=== PATIENT | male | born 1990 | race Caucasian/White ===

== ENCOUNTER 2019-10-09 15:33 | Emergency (ER) | payer SELFPAY ==
[2019-10-09 16:33] VITALS: BP 108/65
[2019-10-09] MEDS ORDERED: CEPHALEXIN 500 MG CAPSULE PO ONE (16:39)
[2019-10-09] MEDS ORDERED: DIPH/PERTUSS(ACELL)/TETANUS VAC/PF 0.5 ML SYR (>=10YO) IM ONE (16:39)
--- NOTE | 2019-10-09 16:43 | ER Document Report ---
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 Patient with puncture wound to left forearm. Patient is concerned that wound will become infected because of the knife he was using was used to cut chickens. Patient denies any fever. Patient denies any history of diabetes. Associated Symptoms: denies: Fever Exacerbated by: Denies Relieved by: Denies Similar symptoms previously: No Recently seen / treated by doctor: No - ROS ROS below otherwise negative: Yes Systems Reviewed and Negative: Yes All other systems reviewed and negative - CONSTITUTIONAL Constitutional: DENIES: Fever, Chills - NEURO Neurology: DENIES: Weakness - MUSCULOSKELETAL Musculoskeletal: REPORTS: Extremity pain - DERM Skin Problems: Laceration, Puncture Wound Past Medical History - General Information source: Patient - Social History Smoking Status: Current Every Day Smoker Frequency of alcohol use: None Drug Abuse: None 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 Family History: Reviewed & Not Pertinent Patient has suicidal ideation: No Patient has homicidal ideation: No - Medical History Medical History: Negative Surgical Hx: Negative - Immunizations Hx Diphtheria, Pertussis, Tetanus Vaccination: No Vertical Provider Document - CONSTITUTIONAL Agree With Documented VS: Yes Exam Limitations: No Limitations General Appearance: WD/WN, No Apparent Distress - HEENT HEENT: Atraumatic, Normocephalic - NECK Neck: Normal Inspection, Supple - RESPIRATORY Respiratory: Breath Sounds Normal, No Respiratory Distress - CARDIOVASCULAR Cardiovascular: Regular Rate, Regular Rhythm Pulses: Normal: Radial - MUSCULOSKELETAL/EXTREMETIES Musculoskeletal/Extremeties: MAEW, FROM, Tender - Tenderness to puncture wound to left forearm - NEURO Level of Consciousness: Awake, Alert, Appropriate Motor/Sensory: No Motor Deficit Notes: No radial, median or ulnar nerve deficits to left arm - DERM Integumentary: Warm, Dry, Laceration - 1 cm puncture wound laceration to left forearm, no surrounding erythema, wound edges approximated Course - Re-evaluation Re-evalutation: 10/09/19 16:40 Presents with concerns about possible infection due to puncture wound to left forearm. Patient without any overt signs of infection at this time. Will start patient on short course of antibiotics as well as updating his tetanus immunization. Signs or symptoms to return immediately were discussed. Wound c are discussed with patient. - Vital Signs Vital signs: Temp Pulse Resp BP Pulse Ox 97.6 F 80 16 108/65 100 10/09/19 16:06 10/09/19 16:06 10/09/19 16:06 10/09/19 16:06 10/09/19 16:06 Discharge - Discharge Clinical Impression: Puncture wound Arm laceration Qualifiers: Encounter type: initial encounter Laterality: left Qualified Code(s): S41.112A - Laceration without foreign body of left upper arm, initial encounter Condition: Stable Disposition: HOME, SELF-CARE Instructions: Antibiotic Ointment Protection ([facility]), Cephalexin ([facility]), Puncture Wound ([facility]), Tetanus Immunization Given ([facility]) Additional Instructions: Return immediately for any new or worsening symptoms: Redness streaks, fever, purulent drainage or any concerning symptoms Followup with your primary care provider, call tomorrow to make a followup appointment Keep wound covered as it continues to heal Prescriptions: Cephalexin Monohydrate [Keflex 500 mg Capsule] 500 mg PO Q6H 5 Days capsule Naproxen [Naprosyn 250 Nmg Tablet] 1 tab PO BID #14 tablet Forms: Return to Work Referrals: [facility] [Provider Group] - Follow up as needed
== END 2019-10-09 17:00 | disposition home or self-care (01) ==
LOC: ER 15:33
DX: S51.832A Puncture wound without foreign body of left forearm, initial encounter (principal); W26.0XXA Contact with knife, initial encounter; Y99.0 Civilian activity done for income or pay; F17.200 Nicotine dependence, unspecified, uncomplicated; Z23 Encounter for immunization
CPT/HCPCS: 90471; 90715; 99283

== ENCOUNTER 2020-03-15 11:24 | Emergency (ER) | payer SELFPAY ==
--- NOTE | 2020-03-15 13:04 | ER Document Report ---
ED Headache - General Chief Complaint: Other Stated Complaint: HEADACHE Time Seen by Provider: 03/15/20 12:57 Mode of Arrival: Ambulatory Information source: Patient Notes: 29-year-old male presented to ED for complaint of a severe headache last night. He states he did get some medicines last night and it is much better today. He states he mainly just needs something to contain his headache still he can get followed up by a primary care doctor and a work note so he can go back to work tomorrow. He is alert oriented respirations regular and unlabored speaking in full sentences. He states when he could afford it he took Maxalt and it worked well. Patient is alert oriented respirations regular nonlabored speaking in full sentences. - HPI Patient complains to provider of: "Migraine" Patient reports: Frequent migraines Onset: Just prior to arrival Onset was: Gradual Timing: Better Quality of pain: Achy Severity: Moderate Pain Level: 3 Exacerbated by: Other Similar symptoms previously: Yes Recently seen / treated by doctor: No - Related Data Allergies/Adverse Reactions: No Known Allergies Allergy (Verified 10/09/19 16:44) Home Medications: Suboxone Past Medical History - General Information source: Patient - Social History Smoking Status: Current Every Day Smoker Chew tobacco use (# tins/day): No Frequency of alcohol use: None Drug Abuse: None Lives with: Family Family History: Reviewed & Not Pertinent Patient has homicidal ideation: No - Past Medical History Cardiac Medical History: Reports: None Pulmonary Medical History: Reports: None EENT Medical History: Reports: None Neurological Medical History: Reports: Hx Migraine Endocrine Medical History: Reports: None Renal/ Medical History: Reports: None Malignancy Medical History: Reports None GI Medical History: Reports: None Musculoskeletal Medical History: Reports None Skin Medical History: Reports None Psychiatric Medical History: Reports: None Traumatic Medical History: Reports: None Infectious Medical History: Reports: None Surgical Hx: Negative Past Surgical History: Reports: None - Immunizations Hx Diphtheria, Pertussis, Tetanus Vaccination: No Review of Systems - Review of Systems Constitutional: No symptoms reported EENT: No symptoms reported Cardiovascular: No symptoms reported Respiratory: No symptoms reported Gastrointestinal: No symptoms reported Genitourinary: No symptoms reported Male Genitourinary: No symptoms reported Musculoskeletal: No symptoms reported Skin: No symptoms reported Hematologic/Lymphatic: No symptoms reported Neurological/Psychological: No symptoms reported, Headaches - Patient had a headache earlier but not now -: Yes All other systems reviewed and negative Physical Exam - Vital signs Vitals: Temp Pulse Resp BP Pulse Ox 98.6 F 87 16 137/76 H 97 03/15/20 11:27 03/15/20 11:27 03/15/20 11:27 03/15/20 11:27 03/15/20 11:27 Interpretation: Normal - General General appearance: Appears well, Alert - HEENT Head: Normocephalic, Atraumatic Eyes: Normal Pupils: PERRL - Respiratory Respiratory status: No respiratory distress Chest status: Nontender Breath sounds: Normal Chest palpation: Normal - Cardiovascular Rhythm: Regular Heart sounds: Normal auscultation Murmur: No - Abdominal Inspection: Normal Distension: No distension Bowel sounds: Normal Tenderness: Nontender Organomegaly: No organomegaly - Back Back: Normal, Nontender - Extremities General upper extremity: Normal inspection, Nontender, Normal color, Normal ROM, Normal temperature General lower extremity: Normal inspection, Nontender, Normal color, Normal ROM, Normal temperature, Normal weight bearing. No: Concepcion's sign - Neurological Neuro grossly intact: Yes Cognition: Normal Orientation: AAOx4 [place] Coma Scale Eye Opening: Spontaneous [place] Coma Scale Verbal: Oriented Susan Coma Scale Motor: Obeys Commands Susan Coma Scale Total: 15 Speech: Normal Motor strength normal: LUE, RUE, LLE, RLE Sensory: Normal - Psychological Associated symptoms: Normal affect, Normal mood - Skin Skin Temperature: Warm Skin Moisture: Dry Skin Color: Normal Course - Re-evaluation Re-evalutation: 03/15/20 23:46 Patient stated he had a headache yesterday and was much better today but he needed a work note to go back to work tomorrow. Patient is alert oriented respi rations regular nonlabored and no acute distress 1 in the emergency room. - Vital Signs Vital signs: Temp Pulse Resp BP Pulse Ox 97.8 F 80 18 116/63 95 03/15/20 13:04 03/15/20 13:04 03/15/20 13:04 03/15/20 13:04 03/15/20 13:04 Discharge - Discharge Clinical Impression: Headache Qualifiers: Headache type: unspecified Headache chronicity pattern: acute headache Intractability: intractable Qualified Code(s): R51 - Headache Condition: Stable Disposition: HOME, SELF-CARE Additional Instructions: HEADACHE: The physician does not feel that the headache you are experiencing has a serious underlying cause. Most headaches are due to emotional stress, with resultant muscle tension (tension headache). Occasionally, headaches are secondary to changes in the blood vessels of the scalp (vascular headache and migraine headache). Sometimes, a headache is the first symptom of another de veloping illness, such as a viral infection. You have no evidence of stroke, bleeding, meningitis, or other serious cause of your headache. The treatment of headaches varies with the severity and cause of the pain. Not all headaches need pain shots. In fact, there is evidence that using narcotics for headaches may make them worse in the long run. The physician will determine the therapy that's in your best interest. If you develop a fever, if the headache is different from any you've previously experienced, or if the headache progressively worsens, then call your physician at once or go to the emergency room. USE OF DIPHENHYDRAMINE: Diphenhydramine (Benadryl) is an antihistamine and has been recommended to help treat your headache and to prevent side effects of other medications used to treat headaches. The medication can be repeated four times daily. Age Elixir (12.5 mg/tsp) 25 mg pill adult 1-2 tabs Antihistamines may cause drowsiness, especially with the first dose. Do not operate machinery or drive while under the effects of the medication. Do not combine the medication with alcohol, or with any other medication without talking to your doctor. ANTINAUSEA MEDICATION: You have been given a medication to suppress nausea and vomiting. This type of medication can be given as a shot, pill, or suppository. It will usually last for many hours. Pills and shots usually last six to eight hours, suppositories last about 12 hours. For the typical illness, only one or two doses of the m edication may be necessary. Mild lightheadedness may occur. This type of medicine can cause drowsiness. Do not drive or operate dangerous machinery while under its influence. Do not mix with alcohol. See your doctor at once if you have muscle spasms or tightness, or uncontrollable motions (particularly of the neck, mouth, or jaw). Persistent vomiting or severe lightheadedness should also be evaluated by the physician. COMPAZINE FOR HEADACHE: You have received therapy for headaches, using intravenous Compazine. This treatment is dramatically successful in relieving the headache in about 50 percent of cases. When it works, it provides a rapid method of eliminating the headache without resorting to narcotics (and the problems associated with them). Most patients still feel fully alert after the Compazine, but others may be slightly drowsy. It's best not to drive or work with machinery for six to eight hours. Do not take alcohol or other medication unless you discuss it with the doctor. If you develop tightness and spasms in your muscles, especially the neck and tongue, you should return. This is a side effect which can be treated. Ibuprofen Ibuprofen is an excellent, safe drug for pain control. In addition, it has potent antiinflammatory effects which are beneficial, especially in the treatment of injuries, arthritis, or tendonitis. It's best to take ibuprofen with food. Persons with ulcer disease or allergy to aspirin should notify their physician of this before taking ibuprofen. Take the medication exactly as prescribed. Don't take additional doses unless instructed to do so by your doctor. If you develop wheezing, shortness of breath, hives, faintness, stomach pain, vomiting, or dark black stools, return for re-evaluation at once. FOLLOW-UP CARE: If you have been referred to a physician for follow-up care, call the physicians office for an appointment as you were instructed or within the next two days. If you experience worsening or a significant change in your symptoms, notify the physician immediately or return to the Emergency Department at any time for re-evaluation. Prescriptions: Prochlorperazine Maleate [Compazine] 10 mg PO Q6HP PRN #10 tablet PRN Reason: Ibuprofen [Ibu] 800 mg PO Q8PM #14 tablet Forms: Elevated Blood Pressure, Smoking Cessation Education, Return to Work
[2020-03-15 13:05] VITALS: BP 116/63
== END 2020-03-15 13:05 | disposition home or self-care (01) ==
LOC: ER 11:24
DX: R51 Headache (principal); Z79.899 Other long term (current) drug therapy; F17.200 Nicotine dependence, unspecified, uncomplicated
CPT/HCPCS: 99283

== ENCOUNTER 2020-03-31 06:26 | Emergency (ER) | payer SELFPAY ==
[2020-03-31] MEDS ORDERED: ONDANSETRON 4 MG TAB.RAPDIS PO ONE (09:22)
--- NOTE | 2020-03-31 09:40 | ER Document Report ---
Entered by SONIA PRESTON SCRIBE 03/31/20 0926 Acting as scribe for:CINDY GALVEZ MD ED General - General Chief Complaint: Nausea/Vomiting Stated Complaint: ABDOMINAL PAIN/VOMITING Time Seen by Provider: 03/31/20 09:09 Mode of Arrival: Ambulatory Information source: Patient Notes: This 29-year-old male patient presents to the emergency department today with complaints of a 2-day history of nausea and vomiting. Patient states he thinks he ate something bad on Saturday around midnight because he woke up at 7:15 AM yesterday with nausea and vomiting. Patient has vomited 2-3 times prior to arrival today. Patient requested not to have any lab work drawn or IV fluids due to prior history of drug abuse. Patient states "every time I see a needle I want to mariella ot up". Patient is on 8 mg of Suboxone twice daily. - Related Data Allergies/Adverse Reactions: No Known Allergies Allergy (Verified 10/09/19 16:44) Home Medications: symboxin Past Medical History - General Information source: Patient - Social History Smoking Status: Current Every Day Smoker Cigarette use (# per day): Yes Chew tobacco use (# tins/day): No Frequency of alcohol use: None Drug Abuse: None Lives with: Family Family History: Reviewed & Not Pertinent Neurological Medical History: Reports: Hx Migraine Surgical Hx: Negative - Immunizations Hx Diphtheria, Pertussis, Tetanus Vaccination: No Review of Systems - Review of Systems Constitutional: No symptoms reported EENT: No symptoms reported Cardiovascular: No symptoms reported Respiratory: No symptoms reported Gastrointestinal: See HPI, Nausea, Vomiting. denies: Abdominal pain Genitourinary: No symptoms reported Male Genitourinary: No symptoms reported Musculoskeletal: No symptoms reported Skin: No symptoms reported Hematologic/Lymphatic: No symptoms reported Neurological/Psychological: No symptoms reported -: Yes All other systems reviewed and negative Physical Exam - Vital signs Vitals: Temp Pulse Resp BP Pulse Ox 98.1 F 78 18 121/71 98 03/31/20 06:31 03/31/20 06:31 03/31/20 06:31 03/31/20 06:31 03/31/20 06:31 - Notes Notes: Physical Exam: General: Alert, appears well. HEENT: Normocephalic. Atraumatic. PERRL. Extraocular movements intact. Oropharynx clear. Neck: Supple. Non-tender. Respiratory: No respiratory distress. Clear and equal breath sounds bilaterally. Cardiovascular: Regular rate and rhythm. Abdominal: Normal Inspection. Non-tender. No distension. Normal Bowel Sounds. Back: No gross abnormalities. Extremities: Moves all four extremities. Upper extremities: Normal inspection. Normal ROM. Lower extremities: Normal inspection. No edema. Normal ROM. Neurological: Normal cognition. AAOx4. Normal speech. Psychological: Normal affect. Normal Mood. Skin: Warm. Dry. Normal color. Course - Re-evaluation Re-evalutation: 03/31/20 11:10 The patient was refusing lab work because he is a former IV drug abuser and is a difficult stick, also he is afraid that having needles placed in his veins may cause him to want to relapse. 03/31/20 11:10 At this time the patient has been sleeping. He feels much better and feels like he can drink fluids without any difficulty. He will be given oral fluid challenges. 03/31/20 13:01 Patient did tolerate p.o. fluids and at this time wants to go home to go back to bed. He will be discharged with Zofran dispense pack. - Vital Signs Vital signs: Temp Pulse Resp BP Pulse Ox 97.5 F 67 16 104/62 98 03/31/20 09:36 03/31/20 09:36 03/31/20 09:36 03/31/20 09:36 03/31/20 09:36 Discharge - Discharge Clinical Impression: Nausea and vomiting Qualifiers: Vomiting type: unspecified Vomiting Intractability: non-intractable Qualified Code(s): R11.2 - Nausea with vomiting, unspecified Condition: Stable Disposition: HOME, SELF-CARE Additional Instructions: Nausea or Vomiting, Nonspecific Vomiting (or nausea without vomiting) can be caused by many different problems. Of course, it can mean that something's wrong with the stomach, such as "stomach flu," ulcers, or inflammation. But it can also be a symptom of a problem that has nothing to do with the stomach or intestines. Vomiting is co mmon with severe headaches, earaches, and tonsillitis. We see it with pneumonia or heart attacks. Drugs can cause nausea. Many abdominal problems cause vomiting; for example, gallstones, kidney stones, pancreatitis, and intestinal obstruction (blocked bowels). In most cases, curing the vomiting depends on fixing the problem that caused it. For temporary relief, we may use an anti-nausea medicine. For home use, we can prescribe suppositories, chewable pills, pills that dissolve in the mouth, or liquid anti-nausea drugs. If the vomiting seems to be caused by a problem in the stomach, acid-suppressing drugs may be prescribed as well. It's important to avoid dehydration. Sip clear liquids. Take increasing amounts of fluid over the first 24 hours. Then start small amounts of bland jacob ds (such as dry toast, applesauce, mashed potato). Avoid aspirin, tobacco, and alcohol. Gradually resume your usual diet. If the vomiting worsens, if the problem that's making you vomit worsens, or if there's evidence of bleeding in the stomach (such as black, tarry stool, bloody or black vomit, or lightheadedness), you should return immediately. Call your doctor if you aren't improved in 24 to 36 hours. Drink small sips of cool clear liquids today. Take the Zofran from the dispense back as needed for nausea today. Get plenty of sleep and rest today. Follow-up with a local primary care provider if not improving. RETURN TO THE EMERGENCY ROOM IF ANY NEW OR WORSENING SYMPTOMS. I personally performed the services described in the documentation, reviewed and edited the documentation which was dictated to the scribe in my presence, and it accurately records my words and actions.
[2020-03-31 09:52] LABS: APPEARANCE,URINE CLEAR; BILIRUBIN,URINE NEGATIVE (NEGATIVE); COLOR,URINE YELLOW; GLUCOSE, URINE NEGATIVE (NEGATIVE); KETONES,URINE NEGATIVE (NEGATIVE); LEUKOCYTE ESTERASE,URINE NEGATIVE (NEGATIVE); NITRITE,URINE NEGATIVE (NEGATIVE); PROTEIN,URINE NEGATIVE (NEGATIVE); URINE SPECIFIC GRAVITY 1.017; UROBILINOGEN,URINE NEGATIVE mg/dL (<2.0)
[2020-03-31] MEDS ORDERED: ONDANSETRON ODT 4 MG TAB (6 TAB/ER DISP) PO PRN (13:01)
[2020-03-31 13:18] VITALS: BP 112/67
== END 2020-03-31 13:16 | disposition home or self-care (01) ==
LOC: ER 06:26
DX: R11.2 Nausea with vomiting, unspecified (principal); R10.9 Unspecified abdominal pain; Z79.899 Other long term (current) drug therapy; Z88.8 Allergy status to other drugs, medicaments and biological substances; F17.210 Nicotine dependence, cigarettes, uncomplicated
CPT/HCPCS: 99283; 81001; S0119

== ENCOUNTER 2020-07-21 19:28 | Emergency (ER) | payer SELFPAY ==
[2020-07-21] MEDS ORDERED: ACETAMINOPHEN 325 MG TABLET PO ONE (19:42)
--- NOTE | 2020-07-21 20:39 | ER Document Report ---
ED General <DONNIE TURNER - Last Filed: 07/21/20 23:10> - General Mode of Arrival: Ambulatory Information source: Patient <LUCERO BUCK - Last Filed: 07/22/20 05:55> - General Stated Complaint: CHILLS/UNCONTROLABLE SHAKING OF ENTIRE BODY Time Seen by Provider: 07/21/20 20:33 Notes: Otherwise healthy 30-year-old male presenting with multiple complaints. Patient reports he had a fever of 102 this morning. He reports he has been shaking uncontrollably is having a headache. Patient reports that headache just started. He denies any neck pain. He has not had any vomiting, diarrhea, cough or congestion. He denies any known exposure to any COVID-19 positive persons. He does report a history of IV drug use. He states that he did use cocaine 2 weeks ago. He injected it. He reports that he thinks he may have a head injury because in the past when he had a head injury he had tremors similar to what he is having now. He denies any recent head trauma that he can remember. (LUCERO BUCK) - Related Data Allergies/Adverse Reactions: No Known Allergies Allergy (Verified 10/09/19 16:44) Past Medical History - General Information source: Patient - Social History Smoking Status: Current Every Day Smoker Drug Abuse: Other - IVDU Family History: Reviewed & Not Pertinent Neurological Medical History: Reports: Hx Migraine Surgical Hx: Negative - denies - Immunizations Hx Diphtheria, Pertussis, Tetanus Vaccination: No <LUCERO BUCK - Last Filed: 07/22/20 05:55> Review of Systems - Review of Systems Constitutional: Chills, Fever, Other - tremors <LUCERO BUCK - Last Filed: 07/22/20 05:55> Physical Exam <LUCERO BUCK - Last Filed: 07/22/20 05:55> - Vital signs Vitals: Resp BP Pulse Ox 21 H 124/91 H 100 07/21/20 20:34 07/21/20 20:34 07/21/20 20:34 - Notes Notes: PHYSICAL EXAMINATION: GENERAL: Well-nourished and in no acute distress. Answers most questions appropriately with intermittent periods of confusion. HEAD: Atraumatic, normocephalic. EYES: Pupils equal round and reactive to light, extraocular movements intact, sclera anicteric, conjunctiva are normal. ENT: Nares patent, oropharynx clear without exudates. Moist mucous membranes. NECK: No nuchal rigidity. LUNGS: Breath sounds clear to auscultation bilaterally and equal. No wheezes rales or rhonchi. HEART: Regular rate and rhythm without murmurs ABDOMEN: Soft, nontender, nondistended abdomen. No guarding, no rebound. No masses appreciated. Musculoskeletal: Normal range of motion, no pitting or edema. No cyanosis. Tenderness to palpate right wrist over the volar surface, no obvious erythema, swelling, crepitus or deformity. Normal range of motion to all extremities. NEUROLOGICAL: Cranial nerves grossly intact. Normal speech. Normal sensory, motor exams. PSYCH: Anxious, guarded, flat affect. SKIN: Warm, Dry, normal turgor, no rashes or lesions noted. (LUCERO BUCK) Course - Laboratory Result Diagrams: 07/21/20 23:42 07/21/20 23:42 <LUCERO BUCK - Last Filed: 07/22/20 05:55> - Re-evaluation Re-evalutation: Nursing staff did call and report to me at approximately 2205 that the patient appeared to be having seizure-like activity. They were unable to get an IV. He was given Ativan 2 mg IM. Radiologist called with critical findings on CT. See below. Will initiate transfer. Head CT 07/21/20 20:59 IMPRESSION: Mild pulmonary edema with mild cardiomegaly. TECHNIQUE: Contiguous axial CT images of the head were obtained. Coronal and sagittal reconstructions were created from the axial data. This exam was performed according to our departmental dose-optimization program, which includes automated exposure control, adjustment of the mA and/or kV according to patient size and/or use of iterative reconstruction technique. FINDINGS: Findings are concerning for diffuse cerebral and cerebellar edema; artifact is possible but less likely. The tellez-white differentiation appears poor throughout the cerebrum and cerebellum, and there is effacement of extra-axial CSF spaces as well as crowding of structures at the foramen magnum with low lying cerebellar tonsils. There is probable bilateral medial uncal herniation as well. The temporal horns are slightly prominent and entrapment is not excluded. No definite intracranial hemorrhage is seen. The third ventricle is slitlike. The lateral ventricles are borderline small. The fourth ventricle is normal to mildly small. There is possible mild expansion of the optic nerve sheaths suggesting increased intracranial pressure but this is a very difficult determination to make on CT without contrast, rather than MRI. No other acute abnormality is identified. IMPRESSION: Findings are worrisome for widespread intracerebral edema with mass effect and effacement of CSF spaces. Clinical correlation with neurologic exam is recommended. Possibilities include cerebritis, ischemia, toxic insult, neoplasm, or edema due to other etiologies and MRI would provide additional detail if the patient is a candidate and if the patient is stable enough for MRI. Close clinical observation is recommended and neurosurgical consultation also recommended. Due to concern for increased intracranial pressure on the basis of this exam, as well as crowding of structures at the foramen magnum with low-lying cerebellar tonsils, lumbar puncture may be contraindicated and caution is advised. Chest X-Ray 07/21/20 21:00 IMPRESSION: Mild pulmonary edema with mild cardiomegaly. TECHNIQUE: Contiguous axial CT images of the head were obtained. Coronal and sagittal reconstructions were created from the axial data. This exam was performed according to our departmental dose-optimization program, which includes automated exposure control, adjustment of the mA and/or kV according to patient size and/or use of iterative reconstruction technique. FINDINGS: Findings are concerning for diffuse cerebral and cerebellar edema; artifact is possible but less likely. The tellez-white differentiation appears poor throughout the cerebrum and cerebellum, and there is effacement of extra-axial CSF spaces as well as crowding of structures at the foramen magnum with low lying cerebellar tonsils. There is probable bilateral medial uncal herniation as well. The temporal horns are slightly prominent and entrapment is not excluded. No definite intracranial hemorrhage is seen. The third ventricle is slitlike. The lateral ventricles are borderline small. The fourth ventricle is normal to mildly small. There is possible mild expansion of the optic nerve sheaths suggesting increased intracranial pressure but this is a very difficult determination to make on CT without contrast, rather than MRI. No other acute abnormality is identified. IMPRESSION: Findings are worrisome for widespread intracerebral edema with mass effect and effacement of CSF spaces. Clinical correlation with neurologic exam is recommended. Possibilities include cerebritis, ischemia, toxic insult, neoplasm, or edema due to other etiologies and MRI would provide additional detail if the patient is a candidate and if the patient is stable enough for MRI. Close clinical observation is recommended and neurosurgical consultation also recommended. Due to concern for increased intracranial pressure on the basis of this exam, as well as crowding of structures at the foramen magnum with low-lying cerebellar tonsils, lumbar puncture may be contraindicated and caution is advised. 07/21/20 22:30 Spoke with [facility]. He is going to have neurosurgery contacted, have them review the images of the head CT and they will call me back. He did advise that they are at capacity however if the patient needs ICU level transfer that that may be able to be accomplished. Dr. Turner is currently at the bedside inserting a central line as we have no IV access despite multiple attempts by nursing including ultrasound guided IV attempts. 07/21/20 22:50 Spoke with [facility]. Spoke to Dr. Simpson of neurosurgery, she declined transfer to her service as she did not feel that any immediate neurosurgical intervention was warranted. Patient is accepted to their ICU at this time. Dr. Ingram accepting. Dr. Turner remains at the bedside inserting the central line. Patient remains alert, he is answering questions appropriately at times with intermittent confusion. He does have periods where he bases off but does arouse with verbal stimulation. 07/22/20 00:05 Multiple re-evaluations have been made on this patient, nursing staff has been at the bedside almost continuously. He has had no acute changes while in our emergency department. Laboratory investigations are actually quite reassuring. He has a mildly elevated white blood count. Chemistries unremarkable. Patient was unable to provide a urine sample. 07/22/20 00:58 Patient reevaluated at this time. Helicopter should be landing any minute. Patient is alert, vital signs are stable he does not off every now and again. He is asking for medication for anxiety and also for headache. I have placed orders for morphine and Ativan. I have asked the nurse to not push these medications until the flight crew has a chance to evaluate the patient and do their own neuro exam. Patient is stable for transfer at this time. (LUCERO BUCK) - Vital Signs Vital signs: Temp Pulse Resp BP Pulse Ox 98.6 F 13 126/88 H 99 07/22/20 01:03 07/22/20 01:01 07/22/20 01:01 07/22/20 01:01 - Laboratory Laboratory results interpreted by me: 07/21/20 07/21/20 07/21/20 23:42 23:42 23:42 WBC 12.1 H RBC 4.25 L Hgb 12.3 L Hct 35.4 L RDW 14.4 H Plt Count 141 L Lymph % (Auto) 9.9 L Absolute Neuts (auto) 9.6 H Seg Neutrophils % 79.8 H Sodium 129.8 L Chloride 93 L Glucose 113 H Lactic Acid 0.6 L Procedures - Central Line Right Femoral Time completed: 22:25 Consent obtained: Yes Central line pre-insertion: Sterile PPE donned, Chloraprep applied, Sterile drapes applied Central line lumen type: Triple Anesthetic type: 1% Lidocaine mL's of anesthesia: 4 Ultrasound guided: Yes Line secured with sutures: Yes Central line post-insertion: Blood return from lumens, Sutured, Sterile dressing applied Number of attempts: 2 <DONNIE TURNER - Last Filed: 07/21/20 23:10> - Central Line Right Femoral Notes: 07/21/20 23:12 The procedure was explained in great detail. Questions were sought and answered. Consent was signed and placed on the chart. The area of strep in the usual sterile fashion. Using the ultrasound I was able to visualize the femoral artery and vein. The area of skin was anesthetized with approximately 4 cc of 1% lidocaine. An introducer needle was cannulated. Initially the patient moved, the femoral artery was pierced. I withdrew the needle, pressure was applied, good hemostasis. Then again under ultrasound guidance, introducer needle was advanced, the femoral vein was cannulated. Nonpulsatile flow was elicited from the needle. Guidewire was advanced. Using a 10 blade a small sonia was placed in the skin. Dilator was placed. The triple-lumen catheter was threaded over the guidewire, being sure to hold onto the guidewire at all times. It was withdrawn. All 3 lm were tested, found to flush and draw well. The remaining 1-1/2 mL of lidocaine were infiltrated for the triple-lumen catheter to be sewed in with 0 silk. Patient tolerated this well. Please see nursing notes for the remainder of dressing. (DONNIE TURNER) Critical Care Note - Critical Care Note Total time excluding time spent on procedures (mins): 60 - Patient requiring multiple re-evaluations and transfer to tertiary facility. <LUCERO BUCK - Last Filed: 07/22/20 05:55> Discharge <DONNIE TURNER - Last Filed: 07/21/20 23:10> <LUCERO BUCK - Last Filed: 07/22/20 05:55> - Discharge Clinical Impression: Cerebral edema Fever Qualifiers: Fever type: unspecified Qualified Code(s): R50.9 - Fever, unspecified Condition: Critical Disposition: [facility]
[2020-07-21] MEDS ORDERED: NORMAL SALINE 1000 ML 1,000 ML IV ONE (21:02)
--- NOTE | 2020-07-21 21:55 | EKG REPORT ---
SEVERITY:- OTHERWISE NORMAL ECG - SINUS TACHYCARDIA : Confirmed by: Alberto Nolan 21-Jul-2020 21:54:28
--- NOTE | 2020-07-21 22:09 | RADIOLOGY REPORT (SQ) ---
EXAM DESCRIPTION: XR CHEST 1 VIEW, CT HEAD WITHOUT IV CONTRAST COMPLETED DATE/TME: 07/21/2020 21:00 (accession [id number]), 07/21/2020 20:59 (accession [id number]) CLINICAL HISTORY: 30 years, Male, fever and headache and tremor None. FINDINGS: Single view of the chest is submitted. There is mild pulmonary edema in both lungs. Heart size is mildly enlarged. Cardiac silhouette is normal. No focal parenchymal or pleural disease. No acute bony abnormality. There is bilateral central pulmonary vascular engorgement. IMPRESSION: Mild pulmonary edema with mild cardiomegaly. TECHNIQUE: Contiguous axial CT images of the head were obtained. Coronal and sagittal reconstructions were created from the axial data. This exam was performed according to our departmental dose-optimization program, which includes automated exposure control, adjustment of the mA and/or kV according to patient size and/or use of iterative reconstruction technique. FINDINGS: Findings are concerning for diffuse cerebral and cerebellar edema; artifact is possible but less likely. The tellez-white differentiation appears poor throughout the cerebrum and cerebellum, and there is effacement of extra-axial CSF spaces as well as crowding of structures at the foramen magnum with low lying cerebellar tonsils. There is probable bilateral medial uncal herniation as well. The temporal horns are slightly prominent and entrapment is not excluded. No definite intracranial hemorrhage is seen. The third ventricle is slitlike. The lateral ventricles are borderline small. The fourth ventricle is normal to mildly small. There is possible mild expansion of the optic nerve sheaths suggesting increased intracranial pressure but this is a very difficult determination to make on CT without contrast, rather than MRI. No other acute abnormality is identified. IMPRESSION: Findings are worrisome for widespread intracerebral edema with mass effect and effacement of CSF spaces. Clinical correlation with neurologic exam is recommended. Possibilities include cerebritis, ischemia, toxic insult, neoplasm, or edema due to other etiologies and MRI would provide additional detail if the patient is a candidate and if the patient is stable enough for MRI. Close clinical observation is recommended and neurosurgical consultation also recommended. Due to concern for increased intracranial pressure on the basis of this exam, as well as crowding of structures at the foramen magnum with low-lying cerebellar tonsils, lumbar puncture may be contraindicated and caution is advised.
[2020-07-21] MEDS ORDERED: LORAZEPAM INJ 2 MG/1 ML VIAL IM ONE (22:11)
[2020-07-21] MEDS ORDERED: DEXAMETHASONE SOD PHOS INJ 10 MG/1 ML VIAL IV ONE (22:21)
[2020-07-21] MEDS ORDERED: CEFTRIAXONE 1 GM/D5W RTU 1 GM/50 ML RTUPB IV ONE (22:22)
[2020-07-21] MEDS ORDERED: ACYCLOVIR SODIUM INJ/PF 500 MG/10 ML SDV IV ONE (22:23)
[2020-07-21] MEDS ORDERED: VANCOMYCIN HCL INJ 1000 MG VIAL IV ONE (23:05)
[2020-07-21 23:58] LABS: ABSOLUTE LYMPHOCYTES (AUTO) 1.2 10^3/uL (0.5-4.7); ABSOLUTE MONOCYTES (AUTO) 1.2 10^3/uL (0.1-1.4); ABSOLUTE NEUT (AUTO) 9.6 10^3/uL (1.7-8.2); BASOPHILS % (AUTO) 0.2 % (0-2); EOSINOPHILS % (AUTO) 0.3 % (0-6); HEMATOCRIT 35.4 % (37.9-51.0); HEMOGLOBIN 12.3 g/dL (13.5-17.0); LYMPHOCYTES % (AUTO) 9.9 % (13-45); MEAN CORPUSCULAR HEMOGLOBIN 28.9 pg (27.0-33.4); MEAN CORPUSCULAR HGB CONC 34.7 g/dL (32.0-36.0); MEAN CORPUSCULAR VOLUME 83 fl (80-97); MONOCYTES % (AUTO) 9.8 % (3-13); PLATELET COUNT 141 10^3/uL (150-450); RED BLOOD COUNT 4.25 10^6/uL (4.35-5.55); RED CELL DISTRIBUTION WIDTH 14.4 % (11.5-14.0); SEGMENTED NEUTROPHILS % (AUTO) 79.8 % (42-78); TOTAL CELLS COUNTED % (AUTO) 100 %; WHITE BLOOD COUNT 12.1 10^3/uL (4.0-10.5)
[2020-07-22 00:10] LABS: INTERNATIONAL RATION (INR) 1.08; PROTHROMBIN TIME 14.2 SEC (11.4-15.4)
[2020-07-22 00:14] LABS: ALBUMIN 4.5 g/dL (3.5-5.0); ALKALINE PHOSPHATASE 104 U/L (38-126); ANION GAP 10 (5-19); ASPARTATE AMINO TRANSFERASE 39 U/L (17-59); BILIRUBIN,DIRECT 0.2 mg/dL (0.0-0.4); BILIRUBIN,TOTAL 0.6 mg/dL (0.2-1.3); BLOOD UREA NITROGEN 10 mg/dL (7-20); CALCIUM 9.1 mg/dL (8.4-10.2); CARBON DIOXIDE 27 mmol/L (22-30); CHLORIDE 93 mmol/L (98-107); GLUCOSE 113 mg/dL (75-110); POTASSIUM 4.1 mmol/L (3.6-5.0)
[2020-07-22] MEDS ORDERED: MORPHINE SULFATE 10 MG/ML INJ IV ONE (00:57)
[2020-07-22] MEDS ORDERED: LORAZEPAM INJ 2 MG/1 ML VIAL IV ONE (00:57)
[2020-07-22 01:00] LABS: APPEARANCE,URINE CLEAR; BILIRUBIN,URINE NEGATIVE (NEGATIVE); COLOR,URINE STRAW; GLUCOSE, URINE NEGATIVE (NEGATIVE); KETONES,URINE NEGATIVE (NEGATIVE); PROTEIN,URINE NEGATIVE (NEGATIVE); URINE SPECIFIC GRAVITY 1.006; UROBILINOGEN,URINE NEGATIVE mg/dL (<2.0)
[2020-07-22 01:26] VITALS: BP 126/88
== END 2020-07-22 01:26 | disposition short-term general hospital (02) ==
LOC: ER 19:28
DX: G93.6 Cerebral edema (principal); J81.1 Chronic pulmonary edema; I51.7 Cardiomegaly; R50.9 Fever, unspecified; D72.829 Elevated white blood cell count, unspecified; F41.9 Anxiety disorder, unspecified; R51.9 Headache, unspecified; F17.200 Nicotine dependence, unspecified, uncomplicated; F19.10 Other psychoactive substance abuse, uncomplicated; R25.1 Tremor, unspecified; R41.0 Disorientation, unspecified; Z87.828 Personal history of other (healed) physical injury and trauma
CPT/HCPCS: 93005; 99285; 96372; 96375; 96365; 96368; 36415; 87040; 82962; 83605; 85025; 85610; 80053; 81001; 71045; 70450; 93010; 36556; J0133; J2270; J2060 ×2; J7030; J3370; J0696; J1100